=== PATIENT | male | born 1980 | race Caucasian/White ===

== ENCOUNTER 2020-05-22 14:05 | Outpatient (REF) | payer OTHER, SELFPAY ==
[2020-05-22 14:35] LABS: MANUAL DIFF FLAG NO
[2020-05-22 14:37] LABS: Basophils Absolute Auto 0.1 X10*3/uL (0.0-0.2); Basophils Percent Auto 0.7 % (0-2); Eosinophils Absolute Auto 0.3 X10*3/uL (0.0-0.4); Eosinophils Percent Auto 3.1 % (0-4); Hematocrit 33.4 % (42-52); Hemoglobin 11.9 g/dl (14.0-18.0); Imm Gran Abs Auto 0.03 X10*3/uL (0.00-0.03); Imm Gran Pct Auto 0.3 % (0.0-0.4); Lymphocytes Absolute Auto 2.1 X10*3/uL (1.2-4.9); Lymphocytes Percent Auto 24.2 % (20-40); Mean Corpuscular HGB Conc 35.6 g/dl (31.0-36.0); Mean Corpuscular Hemoglobin 29.2 pg (27.0-33.0); Mean Corpuscular Volume 82.1 fL (80-98); Mean Platelet Volume 8.6 fL (9.4-12.4); Monocytes Absolute Auto 0.6 X10*3/uL (0.1-1.2); Monocytes Percent Auto 6.6 % (2-11); Neutrophils Absolute Auto 5.7 X10*3/uL (2.0-8.3); Neutrophils Percent Auto 65.1 % (45-73); Platelet Count 252 X10*3/uL (160-400); Red Blood Count 4.07 X10*6/uL (4.60-5.80); Red Cell Distribution Width 13.4 % (11.0-16.0); White Blood Count 8.8 X10*3/uL (4.8-10.8)
[2020-05-22 15:45] LABS: Anion Gap 14 (12-20); Blood Urea Nitrogen 43 mg/dL (9-16); Carbon Dioxide 25 mmol/L (22-29); Chloride 105 mmol/L (96-108); Estimated Glomerular Filt Rate 13; Potassium 2.8 mmol/l (3.3-5.1); Sodium 141 mmol/L (135-145)
== END 2020-05-22 14:06 | disposition home or self-care (01) ==
LOC: HO.LAB 14:05
PROVIDERS: PCP Internal Medicine; Visit Provider Internal Medicine Hypertension Specialist
DX: Q61.2 Polycystic kidney, adult type (principal); Q61.9 Cystic kidney disease, unspecified; I10 Essential (primary) hypertension
CPT/HCPCS: 36415; 80051; 82565; 84520; 85025

== ENCOUNTER → 2020-06-11 14:58 | Outpatient (BNVA) | payer OTHER, SELFPAY | PROVIDERS: PCP Internal Medicine; Referring Provider Internal Medicine; Visit Provider Surgery | DX: Z76.89 Persons encountering health services in other specified circumstances (principal) ==

== ENCOUNTER 2020-07-01 10:55 | Day surgery (SDC) | payer SELFPAY ==
[2020-06-25 14:39] VITALS: BMI 32.1
--- NOTE | 2020-07-01 10:45 | P.CONAN_ITS ---
[facility] Past Medical History Medical History Anal condyloma Chronic kidney disease Hypertension Polycystic kidney disease Family History Family History Father History of kidney cancer Social History Social History Alcohol intake: never Smoking Status: Never smoker Advance Directives: No Advance Directives Information Provided: No Advance Directives on File: No Meds Allergies Allergy/AdvReac Type Severity Reaction Status Date / Time vancomycin [VANCOMYCIN] Allergy Mild HEADACHE, Verified 06/25/20 14:03 RED NECK RXN Penicillins [PENICILLINS] Allergy Unknown HIVES Verified 06/25/20 14:03 Home Medications Medication Instructions Recorded Confirmed Type amlodipine 10 mg tablet 10 mg PO DAILY 06/11/20 07/01/20 History furosemide 20 mg tablet 20 mg PO DAILY 06/11/20 06/25/20 History hydralazine 50 mg tablet 50 mg PO TID 06/11/20 07/01/20 History labetalol 300 mg tablet 300 mg PO BID 06/11/20 07/01/20 History trazodone 1 - 2 tab PO BEDTIME 06/25/20 06/25/20 History Exam Exam Date and Time: July 01, 2020 1045 Height,Weight and Vital Signs: Height 6 ft 4 in Weight 119.748 kg Airway Mallampati Class: II TM Dist: >3cm Neck ROM: Full Assessment and Plan Assessment Anesthesia Assessment: Anesthesia Plan Discussed and Chart Reviewed Final Anesthetic Review NPO: Yes ASA Class: III Final Preanesthetic Review: No Changes in Pt Med Stat, Meds/Allgs Chart Reviewed, Consent Obtained/Reviewed and Anes Risks/Benef Reviewed Patient Risk: Intermediate Procedure Risk: Low Assessment/Block/Sedation in SS: Assess/Block/Sedation-SS Anesthetic Plan Anesthetic Plan: MAC: Disposition: Standard PACU
[2020-07-01 11:20] VITALS: BP 145/100; PULSE 85; RESP 16; TEMP 36.9; O2SAT 96
--- NOTE | 2020-07-01 11:27 | MHC.SHP ---
Pre-Procedural Eval Section B Chief Complaint: Anal Condyloma Allergies: Allergies Allergy/AdvReac Type Severity Reaction Status Date / Time vancomycin [VANCOMYCIN] Allergy Mild HEADACHE, Verified 06/25/20 14:03 RED NECK RXN Penicillins [PENICILLINS] Allergy Unknown HIVES Verified 06/25/20 14:03 Plan Patient has been examined and remains a candidate for the planned procedure
[2020-07-01 12:20] VITALS: BP 130/83; PULSE 105; RESP 16; TEMP 36.7; O2SAT 97
--- NOTE | 2020-07-01 12:25 | PM.OP ---
Brief Operative Note Date of Service: 07/01/20 Pre-op diagnosis: perianal condyloma Post-op diagnosis: same Procedure: EUA, exc of perianal condyloma, cauterizatio of anal condyloma Surgeon: Melo Heath MD Anesthesia: MAC Estimated blood loss (mL): 10 Pathology: other (condyloma) Condition: stable Disposition: PACU
[2020-07-01 12:33] VITALS: BP 129/95; PULSE 105; RESP 20; O2SAT 94
[2020-07-01 12:35] VITALS: BP 132/95; PULSE 102; RESP 20; O2SAT 95
--- NOTE | 2020-07-01 12:56 | OP_ITS ---
SURGEON: Melo Heath MD PREOPERATIVE DIAGNOSIS: POSTOPERATIVE DIAGNOSIS: PROCEDURE PERFORMED: Exam under anesthesia, excision of perianal condyloma, and cauterization of anal canal condyloma. 40-year-old male with history of excision of condylomasin the past, seen in the office because of another condylomatous lesion in the perianal area. He was noted to have lobulated condylomatous lesion in the right perianal area just at the verge. This was about 2 cm in size including the stalk.. He understood the technique of excision of the condyloma and is aware of the risks, benefits, and alternatives. ESTIMATED BLOOD LOSS: COMPLICATIONS: ANESTHESIA: ASSISTANTS: SPECIMENS: DESCRIPTION OF PROCEDURE: He was brought to the operating room, placed in prone Jackknife position under MAC> The buttocks were retracted with wide tape laterally. The perianal area was prepped and draped in usual sterile fashion. A surgical time-out was done. The patient received Cefotan 2 g IV preoperatively. The perianal area was generously inflitrated with Lidocaine 1%. Examination of the anal canal showed this lobulated condylomatous lesion in the right perianal area just at the verge itself. This was actually about almost 2 cm in size including the stalk. There were no perianal condylomatous lesions. I inserted the Tasha-Palmer retractor. I examined the anal canal circumferentially. There were some flatter condylomatous lesions just above the dentate line on the left anterior side of the anal canal. I cauterized these lesions until they were down to a grayish eschar.. I then proceeded to apply a Ledezma grasper at the condylomatous lesion on the right side. I made a [id number] stitch past this using chromic 3-0. I made an incision around this hemorrhoidal column of the perianal skin using blade 15 to include the area of the stalk. I excised this condylomatous lesion above the plane of the sphincters through the subcutaneous layer using electrocautery and it was sent as a specimen. I closed the incision with running chromic 3-0 stitch. Multiple additional hemostatic chromic 3-0 [id number] sutures were placed because of oozing areas within the incision. I then re-examined the entire anal canal. There were no other obvious lesions. There was good hemostasis including the fundus excision site. I infiltrated the perianal area with Marcaine 0.5% for postop analgesia. The procedure was then completed. The patient tolerated the procedure well. There were no complications noted. Initial and final counts of sponges and instruments were correct. Estimated blood loss about 10 mL. The patient was then transferred to recovery room with stable vital signs. Please note that the anesthesia was actually monitored anesthesia care and the entire perianal area was infiltrated with lidocaine 1% at the beginning of the case. MD SHARON Brizuela/SARITA / [id number] MTDD
--- NOTE | 2020-07-01 13:09 | HO.POSTANES ---
Post Anesthesia Evaluation Post Anesthesia Evaluation Vital Signs: Vital Signs Temp Pulse Resp BP Pulse Ox 07/01/20 12:35 102 H 20 132/95 H 95 07/01/20 12:33 105 H 20 129/95 H 94 07/01/20 12:20 98.1 F 105 H 16 130/83 97 07/01/20 11:20 98.4 F 85 16 145/100 H 96 Anesthesia: Monitored Mental Status: Awake Pain Control: Satisfactory Nausea/Vomiting: None Hydration: Adequate Anesthesia-Related Issues: No Anes. Related Issues
== END 2020-07-01 13:13 | disposition home or self-care (01) ==
PROVIDERS: PCP Internal Medicine; Visit Provider Surgery
PROC: (CPT 46922; principal; 2020-07-01 12:50)
DX: A63.0 Anogenital (venereal) warts (principal); I12.9 Hypertensive chronic kidney disease with stage 1 through stage 4 chronic kidney disease, or unspecified chronic kidney disease; N18.9 Chronic kidney disease, unspecified; Q61.3 Polycystic kidney, unspecified; Z80.51 Family history of malignant neoplasm of kidney; Z88.0 Allergy status to penicillin; Z88.1 Allergy status to other antibiotic agents; Z79.899 Other long term (current) drug therapy
CPT/HCPCS: 46922; 88305; J2250; J2405; J3010